=== PATIENT | male | born 1970 | race Caucasian/White ===

== ENCOUNTER 2017-10-27 09:35 | Inpatient (IN) | payer MEDICAID, OTHER ==
[~2017-10-27] VITALS: Ht 182.9 cm; Wt 114.0 kg
[~2017-10-27 09:35] MED LIST: CLIN-26 PO; CLON-371 PO; CLON-529 PO; ONDA4TAB12 PO
[2017-10-27 10:20] LABS: BASOPHILS % (AUTO) 0.3 % (0-1); EOSINOPHILS # (AUTO) 0.1 X10'3 (0-0.9); EOSINOPHILS % (AUTO) 1.7 % (0-6); HEMOGLOBIN 14.4 g/dl (14.0-17.9); LYMPHOCYTES # (AUTO) 1.1 X10'3 (1.1-4.8); MEAN CORPUSCULAR HEMOGLOBIN 31.7 PG (27.0-31.0); MEAN CORPUSCULAR VOLUME 90.5 FL (78-98); MEAN PLATELET VOLUME 8.8 FL (7.4-10.4); MONOCYTES # (AUTO) 0.4 X10'3 (0-0.9); MONOCYTES % (AUTO) 5.8 % (2-12); NEUTROPHILS # (AUTO) 5.3 X10'3 (1.8-7.7); NEUTROPHILS % (AUTO) 76.2 % (42-75); PLATELET COUNT 215 X10'3 (140-440); RED BLOOD COUNT 4.53 X10'6 (4.70-6.10); RED CELL DISTRIBUTION WIDTH 13.8 % (11.5-14.5); WHITE BLOOD COUNT 6.9 X10'3 (4.5-11.0)
[2017-10-27 10:30] LABS: INR 1.1 INR; PARTIAL THROMBOPLASTIN TIME 25 SECONDS (22-32)
[2017-10-27 10:34] LABS: ALANINE AMINOTRANSFERASE 33 U/L (12-78); ALBUMIN 3.8 G/DL (3.4-5.0); ALBUMIN/GLOBULIN RATIO 1.2 (1.1-1.5); ALKALINE PHOSPHATASE 94 IU/L (46-116); ANION GAP 11 (8-16); ASPARTATE AMINO TRANSFERASE 18 U/L (10-37); BLOOD UREA NITROGEN 21 MG/DL (7-18); BUN/CREATININE RATIO 19.3 (5.4-32.0); CHLORIDE 106 MMOL/L (99-107); CREATININE 1.09 MG/DL (0.60-1.10); GLUCOSE 104 MG/DL (70-104); POTASSIUM 3.8 MMOL/L (3.5-5.1); SODIUM 143 MMOL/L (135-145); TOTAL CARBON DIOXIDE 26.5 MMOL/L (24-32); TOTAL PROTEIN 7.1 G/DL (6.4-8.2); eGFR 73 ML/MIN
[2017-10-27] MEDS ORDERED: ketorolac trometh. 30mg/ml inj. IV ONE (11:35)
[2017-10-27] MEDS ORDERED: BUSP10TA11 PO (11:39)
[2017-10-27] MEDS ORDERED: LISI-600 PO (11:39)
[2017-10-27] MEDS ORDERED: mag hydrox/Alum hydrox/simeth 30ml oral suspension PO PRN (11:50)
[2017-10-27] MEDS ORDERED: acetaminophen 325mg tablet PO PRN (11:50)
[2017-10-27] MEDS ORDERED: ondansetron/PF 4mg/2ml inj IV PRN (11:50)
[2017-10-27] MEDS ORDERED: magnesium 2GM in 50ml NS 50 ML IV PRN (11:50)
[2017-10-27] MEDS ORDERED: magnesium 4gm in 100ml NS 100 ML IV PRN (11:50)
[2017-10-27] MEDS ORDERED: potassium Cl 20 mEq SR tablet PO PRN ×2 (11:50)
[2017-10-27] MEDS ORDERED: potassium Cl 40MEQ/NS 500ml 500 ML IV PRN ×2 (11:50)
[2017-10-27] MEDS ORDERED: magnesium Cl slow-release 64mg tablet PO PRN (11:50)
[2017-10-27] MEDS ORDERED: magnesium hydroxide 30ml (MOM) UD suspension PO PRN (11:50)
[2017-10-27] MEDS: K and/or MAG REPLACEMENT MC SCH (12:00)
[2017-10-27 12:01] LABS: URINE AMPHETAMINE SCREEN NEGATIVE (Neg); URINE BARBITUATE SCREEN NEGATIVE (Neg); URINE BENZODIAZEPINES SCREEN NEGATIVE (Neg); URINE CANNABINOID SCREEN POSITIVE (Neg); URINE COCAINE SCREEN NEGATIVE (Neg); URINE METHADONE SCREEN NEGATIVE (Neg); URINE OPIATE SCREEN NEGATIVE (Neg); URINE PHENCYCLIDINE SCREEN NEGATIVE (Neg)
[2017-10-27] MEDS: normal saline 1000ml 1,000 ML IV SCH ×2 (12:04→21:50)
[2017-10-27 12:08] LABS: MAGNESIUM 2.1 MG/DL (1.5-2.4); PHOSPHORUS 2.9 MG/DL (2.3-4.5)
[2017-10-27] MEDS: aspirin 81mg tablet.DR PO SCH (12:26)
[2017-10-27] MEDS: acetaminophen 325mg tablet PO PRN ×2 (12:27→21:12)
[2017-10-27 13:41] VITALS: BP 134/71
[2017-10-27] MEDS: HYDROmorphone 1 mg/ml syringe IV PRN ×3 (14:55→23:07)
[2017-10-27 16:01] LABS: C-REACTIVE PROTEIN 0.21 MG/DL (0.0-0.5)
[2017-10-27 18:00] VITALS: BP 140/75
[2017-10-27] MEDS ORDERED: temazepam 15mg capsule PO PRN (21:00)
[2017-10-27] MEDS: magnesium Cl slow-release 64mg tablet PO SCH (21:09)
[2017-10-27] MEDS: methylPREDNISolone sod succ 125mg/2ml vial IV SCH (21:10)
[2017-10-27] MEDS: busPIRone 15mg tablet PO SCH (21:10)
[2017-10-27 22:00] VITALS: BP 139/71
[2017-10-28] MEDS: HYDROmorphone/NS 1 mg/ml CADD 50 ML IV SCH ×6 (01:00→11:00)
[2017-10-28 02:00] VITALS: BP 124/66
[2017-10-28] MEDS: methylPREDNISolone sod succ 125mg/2ml vial IV SCH ×4 (02:46→19:05)
[2017-10-28 06:00] VITALS: BP 138/65
[2017-10-28 06:03] LABS: HEMOGLOBIN 14.2 g/dl (14.0-17.9); MEAN CORPUSCULAR HEMOGLOBIN 31.5 PG (27.0-31.0); MEAN CORPUSCULAR HGB CONC 34.5 % (33.0-36.5); MEAN CORPUSCULAR VOLUME 91.2 FL (78-98); MEAN PLATELET VOLUME 9.3 FL (7.4-10.4); PLATELET COUNT 212 X10'3 (140-440); RED CELL DISTRIBUTION WIDTH 13.7 % (11.5-14.5); WHITE BLOOD COUNT 6.6 X10'3 (4.5-11.0)
[2017-10-28 06:14] LABS: ANION GAP 9 (8-16); BLOOD UREA NITROGEN 20 MG/DL (7-18); BUN/CREATININE RATIO 17.5 (5.4-32.0); CALCIUM 8.7 MG/DL (8.5-10.1); CHLORIDE 106 MMOL/L (99-107); CREATININE 1.14 MG/DL (0.60-1.10); GLUCOSE 123 MG/DL (70-104); POTASSIUM 4.4 MMOL/L (3.5-5.1); SODIUM 141 MMOL/L (135-145); TOTAL CARBON DIOXIDE 25.8 MMOL/L (24-32); eGFR 69 ML/MIN
[2017-10-28 06:15] LABS: ALBUMIN 3.6 G/DL (3.4-5.0); CHOLESTEROL 142 MG/DL (0-200); HDL CHOLESTEROL 48 MG/DL (35-60); LDL CHOLESTEROL 79 MG/DL (50-100); MAGNESIUM 2.1 MG/DL (1.5-2.4); PHOSPHORUS 3.3 MG/DL (2.3-4.5); TRIGLYCERIDES 69 MG/DL (20-135)
[2017-10-28] MEDS: busPIRone 15mg tablet PO SCH ×2 (07:53→19:06)
[2017-10-28] MEDS: magnesium Cl slow-release 64mg tablet PO SCH ×2 (07:54→19:06)
[2017-10-28] MEDS: lisinopril 20mg tablet PO SCH (07:54)
[2017-10-28] MEDS: aspirin 81mg tablet.DR PO SCH (07:54)
[2017-10-28] MEDS: enoxaparin 40mg/0.4ml syringe SQ SCH (07:55)
[2017-10-28] MEDS: normal saline 1000ml 1,000 ML IV SCH ×2 (10:15→19:43)
[2017-10-28 11:00] VITALS: BP 137/74
[2017-10-28] MEDS: cyclobenzaprine 10mg tablet PO PRN ×2 (11:45→22:00)
[2017-10-28] MEDS: ketorolac tromethamine 15mg/ml inj. IV SCH ×2 (11:45→16:50)
[2017-10-28] MEDS: HYDROcodone/acetaminophen 10/325mg tab PO PRN ×3 (14:24→23:14)
[2017-10-28 15:00] VITALS: BP 142/73
[2017-10-28] MEDS ORDERED: CADD PCA waste documentation MC SCH (15:40)
[2017-10-28 19:00] VITALS: BP 144/75
[2017-10-28 23:00] VITALS: BP 141/74
[2017-10-29] MEDS: ketorolac tromethamine 15mg/ml inj. IV SCH ×4 (00:21→23:14)
[2017-10-29] MEDS: methylPREDNISolone sod succ 125mg/2ml vial IV SCH ×2 (01:00→07:29)
[2017-10-29 03:00] VITALS: BP 154/79
[2017-10-29] MEDS: HYDROcodone/acetaminophen 10/325mg tab PO PRN ×5 (05:31→22:26)
[2017-10-29 06:00] VITALS: BP 143/71
[2017-10-29] MEDS: normal saline 1000ml 1,000 ML IV SCH ×3 (06:06→16:11)
[2017-10-29 06:18] LABS: HEMATOCRIT 39.9 % (42.0-52.0); HEMOGLOBIN 13.8 g/dl (14.0-17.9); MEAN CORPUSCULAR HEMOGLOBIN 31.4 PG (27.0-31.0); MEAN CORPUSCULAR HGB CONC 34.6 % (33.0-36.5); MEAN CORPUSCULAR VOLUME 90.7 FL (78-98); PLATELET COUNT 228 X10'3 (140-440); RED BLOOD COUNT 4.39 X10'6 (4.70-6.10); RED CELL DISTRIBUTION WIDTH 13.5 % (11.5-14.5); WHITE BLOOD COUNT 17.1 X10'3 (4.5-11.0)
[2017-10-29 06:36] LABS: ALBUMIN 3.2 G/DL (3.4-5.0); ANION GAP 9 (8-16); BLOOD UREA NITROGEN 19 MG/DL (7-18); BUN/CREATININE RATIO 19.8 (5.4-32.0); CALCIUM 8.6 MG/DL (8.5-10.1); CHLORIDE 107 MMOL/L (99-107); CREATININE 0.96 MG/DL (0.60-1.10); GLUCOSE 155 MG/DL (70-104); PHOSPHORUS 3.1 MG/DL (2.3-4.5); POTASSIUM 4.2 MMOL/L (3.5-5.1); SODIUM 143 MMOL/L (135-145); TOTAL CARBON DIOXIDE 26.7 MMOL/L (24-32); eGFR 85 ML/MIN
[2017-10-29] MEDS: aspirin 81mg tablet.DR PO SCH (07:28)
[2017-10-29] MEDS: cyclobenzaprine 10mg tablet PO PRN ×2 (07:28→16:05)
[2017-10-29] MEDS: lisinopril 20mg tablet PO SCH (07:28)
[2017-10-29] MEDS: busPIRone 15mg tablet PO SCH ×2 (07:28→19:09)
[2017-10-29] MEDS: enoxaparin 40mg/0.4ml syringe SQ SCH (07:30)
[2017-10-29] MEDS: K and/or MAG REPLACEMENT MC SCH (07:40)
[2017-10-29] MEDS: magnesium Cl slow-release 64mg tablet PO SCH ×2 (08:23→19:09)
[2017-10-29] MEDS: HYDROmorphone 1 mg/ml syringe IV PRN ×4 (10:29→23:15)
[2017-10-29 11:00] VITALS: BP 126/66
[2017-10-29] MEDS: pantoprazole 40mg Tablet.DR PO SCH (11:56)
[2017-10-29 15:00] VITALS: BP 147/79
[2017-10-29 19:00] VITALS: BP 172/82
[2017-10-29 23:00] VITALS: BP 148/79
[2017-10-30] MEDS: cyclobenzaprine 10mg tablet PO PRN ×2 (00:37→10:07)
[2017-10-30] MEDS: HYDROcodone/acetaminophen 10/325mg tab PO PRN ×5 (02:59→23:21)
[2017-10-30 03:00] VITALS: BP 133/68
[2017-10-30] MEDS: HYDROmorphone 1 mg/ml syringe IV PRN ×4 (05:30→21:18)
[2017-10-30] MEDS: normal saline 1000ml 1,000 ML IV SCH ×2 (05:30→19:50)
[2017-10-30 07:00] VITALS: BP 136/68
[2017-10-30 07:06] LABS: HEMATOCRIT 38.1 % (42.0-52.0); HEMOGLOBIN 12.7 g/dl (14.0-17.9); MEAN CORPUSCULAR HGB CONC 33.3 % (33.0-36.5); MEAN PLATELET VOLUME 9.2 FL (7.4-10.4); PLATELET COUNT 186 X10'3 (140-440); RED BLOOD COUNT 4.09 X10'6 (4.70-6.10)
[2017-10-30] MEDS: magnesium Cl slow-release 64mg tablet PO SCH ×2 (07:37→21:22)
[2017-10-30] MEDS: lisinopril 20mg tablet PO SCH (07:37)
[2017-10-30] MEDS: pantoprazole 40mg Tablet.DR PO SCH (07:37)
[2017-10-30] MEDS: busPIRone 15mg tablet PO SCH ×2 (07:37→21:18)
[2017-10-30] MEDS: ketorolac tromethamine 15mg/ml inj. IV SCH ×2 (07:37→16:35)
[2017-10-30] MEDS: enoxaparin 40mg/0.4ml syringe SQ SCH (07:38)
[2017-10-30] MEDS: aspirin 81mg tablet.DR PO SCH (07:38)
[2017-10-30] MEDS: K and/or MAG REPLACEMENT MC SCH (08:00)
[2017-10-30 08:06] LABS: ANION GAP 6 (8-16); BLOOD UREA NITROGEN 27 MG/DL (7-18); CALCIUM 8.3 MG/DL (8.5-10.1); CHLORIDE 111 MMOL/L (99-107); CREATININE 1.04 MG/DL (0.60-1.10); GLUCOSE 102 MG/DL (70-104); PHOSPHORUS 3.7 MG/DL (2.3-4.5); POTASSIUM 3.7 MMOL/L (3.5-5.1); SODIUM 146 MMOL/L (135-145); TOTAL CARBON DIOXIDE 29.5 MMOL/L (24-32); eGFR 77 ML/MIN
[2017-10-30 11:00] VITALS: BP 143/87
[2017-10-30 15:00] VITALS: BP 165/95
[2017-10-30 19:00] VITALS: BP 144/82
[2017-10-30 23:00] VITALS: BP 151/66
[2017-10-31] MEDS: ketorolac tromethamine 15mg/ml inj. IV SCH ×2 (00:28→07:56)
[2017-10-31] MEDS: HYDROmorphone 1 mg/ml syringe IV PRN ×3 (02:11→12:25)
[2017-10-31 03:00] VITALS: BP 155/90
[2017-10-31] MEDS: HYDROcodone/acetaminophen 10/325mg tab PO PRN ×2 (04:17→09:15)
[2017-10-31 05:20] LABS: HEMATOCRIT 40.8 % (42.0-52.0); HEMOGLOBIN 14.1 g/dl (14.0-17.9); MEAN CORPUSCULAR HEMOGLOBIN 31.5 PG (27.0-31.0); MEAN CORPUSCULAR HGB CONC 34.6 % (33.0-36.5); MEAN CORPUSCULAR VOLUME 91.1 FL (78-98); MEAN PLATELET VOLUME 8.5 FL (7.4-10.4); PLATELET COUNT 171 X10'3 (140-440); RED BLOOD COUNT 4.48 X10'6 (4.70-6.10); RED CELL DISTRIBUTION WIDTH 14.2 % (11.5-14.5); WHITE BLOOD COUNT 7.8 X10'3 (4.5-11.0)
[2017-10-31] MEDS: normal saline 1000ml 1,000 ML IV SCH (05:50)
[2017-10-31 05:56] LABS: ALBUMIN 3.2 G/DL (3.4-5.0); ANION GAP 7 (8-16); BLOOD UREA NITROGEN 18 MG/DL (7-18); BUN/CREATININE RATIO 21.7 (5.4-32.0); CHLORIDE 104 MMOL/L (99-107); CREATININE 0.83 MG/DL (0.60-1.10); GLUCOSE 87 MG/DL (70-104); MAGNESIUM 2.1 MG/DL (1.5-2.4); PHOSPHORUS 4.1 MG/DL (2.3-4.5); POTASSIUM 3.8 MMOL/L (3.5-5.1); SODIUM 140 MMOL/L (135-145); eGFR > 90 ML/MIN
[2017-10-31 06:00] VITALS: BP 148/89
[2017-10-31] MEDS: lisinopril 20mg tablet PO SCH (07:56)
[2017-10-31] MEDS: aspirin 81mg tablet.DR PO SCH (07:56)
[2017-10-31] MEDS: pantoprazole 40mg Tablet.DR PO SCH (07:56)
[2017-10-31] MEDS: enoxaparin 40mg/0.4ml syringe SQ SCH (07:56)
[2017-10-31] MEDS: busPIRone 15mg tablet PO SCH (07:56)
[2017-10-31] MEDS: cyclobenzaprine 10mg tablet PO PRN (07:56)
[2017-10-31] MEDS: K and/or MAG REPLACEMENT MC SCH (08:00)
[2017-10-31] MEDS: magnesium Cl slow-release 64mg tablet PO SCH (09:15)
[2017-10-31 11:00] VITALS: BP 143/90
[2017-10-31] MEDS ORDERED: HYDR-565 PO (11:47)
[2017-10-31] MEDS ORDERED: IBUP-1986 PO (11:48)
[2017-10-31] MEDS ORDERED: CYCL-1 PO (11:48)
[2017-10-31] MEDS ORDERED: OMEP40CA37 PO (11:48)
== END 2017-10-31 13:05 | disposition home or self-care (01) | DRG 347 ==
LOC: ER 09:35 → ED HOLD 11:50 → OBSVTOIN 11:50 → PCU 3S 13:31
PROVIDERS: ADMIT Family Medicine; ATTEND Family Medicine
DX: M54.5 Low back pain (principal); I10 Essential (primary) hypertension; R00.1 Bradycardia, unspecified; E66.9 Obesity, unspecified; T14.8XXA Other injury of unspecified body region, initial encounter; F32.9 Major depressive disorder, single episode, unspecified; T38.0X5A Adverse effect of glucocorticoids and synthetic analogues, initial encounter; F12.90 Cannabis use, unspecified, uncomplicated; G47.30 Sleep apnea, unspecified; Z79.899 Other long term (current) drug therapy; Z68.34 Body mass index [BMI] 34.0-34.9, adult; Z88.0 Allergy status to penicillin; Y92.89 Other specified places as the place of occurrence of the external cause
CPT/HCPCS: 36415; 70450; 71045; 72148; 80048; 80053; 80061; 80305; 83735; 84100; 84484; 85025; 85027; 85610; 85651; 85730; 86140; 93005; 93306; 93880; 96374; 97116; 97161; 97530; 99285; A6258; J1170; J1650; J1885; J2930; J7030

== ENCOUNTER 2021-01-20 13:16 | Emergency (ER) | payer MEDICAID ==
[~2021-01-20] VITALS: Ht 182.9 cm; Wt 117.1 kg
[~2021-01-20 13:16] MED LIST changes: +BUPR1FIL3 SL; -CLIN-26 PO; -CLON-371 PO; -CLON-529 PO; +HYDR-3927 PO; +HYDR25TA4 PO; +IBUP-1986 PO; +LISI20TA28 PO; +MULT-955 PO; -ONDA4TAB12 PO
[2021-01-20 14:14] VITALS: BP 170/92
[2021-01-20 14:43] LABS: BASOPHILS % (AUTO) 0.6 % (0-1); EOSINOPHILS # (AUTO) 0.2 X10'3 (0-0.9); EOSINOPHILS % (AUTO) 2.8 % (0-6); HEMATOCRIT 41.8 % (42.0-52.0); HEMOGLOBIN 14.1 g/dl (14.0-17.9); LYMPHOCYTES # (AUTO) 1.4 X10'3 (1.1-4.8); LYMPHOCYTES % (AUTO) 20.1 % (21-51); MEAN CORPUSCULAR HEMOGLOBIN 30.5 PG (27.0-31.0); MEAN CORPUSCULAR HGB CONC 33.7 g/dL (33.0-36.5); MEAN CORPUSCULAR VOLUME 90.5 FL (78-98); MEAN PLATELET VOLUME 7.9 FL (7.4-10.4); MONOCYTES # (AUTO) 0.5 X10'3 (0-0.9); MONOCYTES % (AUTO) 7.5 % (2-12); NEUTROPHILS # (AUTO) 4.9 X10'3 (1.8-7.7); PLATELET COUNT 241 X10'3 (140-440); RED BLOOD COUNT 4.62 X10'6 (4.70-6.10); WHITE BLOOD COUNT 7.1 X10'3 (4.5-11.0)
[2021-01-20 15:00] LABS: ALANINE AMINOTRANSFERASE 69 U/L (12-78); ALBUMIN 3.8 G/DL (3.4-5.0); ALKALINE PHOSPHATASE 87 IU/L (46-116); ANION GAP 10 (8-16); ASPARTATE AMINO TRANSFERASE 29 U/L (10-37); BILIRUBIN,TOTAL 0.5 MG/DL (0.1-1.0); BLOOD UREA NITROGEN 14 MG/DL (7-18); BUN/CREATININE RATIO 16.5 (5.4-32.0); CALCIUM 8.7 MG/DL (8.5-10.1); CHLORIDE 105 MMOL/L (99-107); CREATININE 0.85 MG/DL (0.60-1.10); GLUCOSE 106 MG/DL (70-104); POTASSIUM 4.3 MMOL/L (3.5-5.1); SODIUM 142 MMOL/L (135-145); TOTAL CARBON DIOXIDE 26.8 MMOL/L (24-32); TOTAL PROTEIN 7.5 G/DL (6.4-8.2); eGFR > 90 ML/MIN
[2021-01-20 15:06] LABS: MAGNESIUM 2.2 MG/DL (1.5-2.4)
== END 2021-01-20 16:10 | disposition home or self-care (01) ==
LOC: ER 13:17
DX: R07.9 Chest pain, unspecified (principal); R42 Dizziness and giddiness; I10 Essential (primary) hypertension; J44.9 Chronic obstructive pulmonary disease, unspecified; G89.29 Other chronic pain; M54.9 Dorsalgia, unspecified; F41.9 Anxiety disorder, unspecified; F11.10 Opioid abuse, uncomplicated; Z88.0 Allergy status to penicillin; Z91.030 Bee allergy status
CPT/HCPCS: 36415; 71045; 80053; 83735; 83880; 84484; 85025; 93005; 99285